=== PATIENT | male | born 1955 | race Caucasian/White ===

== ENCOUNTER 2019-11-07 10:09 | Inpatient (IN) ==
[~2019-11-07 10:09] MED LIST: DOXYCYCLINE 100 MG in DEXTROSE 5% IN WATER 100 ML IV ONE
[2019-11-07 10:44] LABS: POC Blood Urea Nitrogen 20 mg/dl (8-23); POC CO2 31 mmol/L (22-30); POC Calcium, Ionized 1.15 mmol/L (1.16-1.32); POC Chloride 103 mmol/L (96-108); POC Creatinine 0.4 mg/dl (0.7-1.2); POC Glucose, Random 91 mg/dL (70-105); POC Sodium 141 mmol/L (133-145)
[2019-11-07] MEDS ORDERED: SCOPOLAMINE 1 PATCH PATCH TOPICAL ONE (11:14)
[2019-11-07] MEDS ORDERED: ONDANSETRON 4 MG/2 ML VIAL IV ONE (14:55)
[2019-11-07] MEDS ORDERED: DEXAMETHASONE 10 MG/ML VIAL IV ONE (14:55)
[2019-11-07] MEDS ORDERED: LIDOCAINE HCL/PF 100 MG/5 ML SYRINGE IV ONE (14:55)
[2019-11-07] MEDS ORDERED: KETAMINE 100 MG/ML ML IV ONE (14:55)
[2019-11-07] MEDS ORDERED: ePHEDrine 50 MG/ML AMPUL IV ONE (14:55)
[2019-11-07] MEDS ORDERED: PROPOFOL 200 MG/20 ML VIAL IV ONE (14:55)
[2019-11-07] MEDS ORDERED: diphenhydrAMINE 50 MG/ML VIAL IV PRN ×2 (15:19→16:38)
[2019-11-07] MEDS ORDERED: METHOCARBAMOL 1,000 MG/10 ML VIAL IV PRN ×2 (15:19→16:38)
[2019-11-07] MEDS ORDERED: ePHEDrine 50 MG/ML AMPUL IV PRN ×2 (15:19→16:38)
[2019-11-07] MEDS ORDERED: ATROPINE SULFATE 0.4 MG/ML VIAL IV PRN ×2 (15:19→16:38)
[2019-11-07] MEDS ORDERED: IPRATROPIUM/ALBUTEROL 3 ML AMPUL.NEB NEB PRN ×2 (15:19→16:38)
[2019-11-07] MEDS ORDERED: fentaNYL 100 MCG/2 ML VIAL IV PRN ×2 (15:19→16:38)
[2019-11-07] MEDS ORDERED: NALOXONE HCL 0.4 MG/ML VIAL IV PRN ×2 (15:19→16:38)
[2019-11-07] MEDS ORDERED: ONDANSETRON 4 MG/2 ML VIAL IV PRN ×4 (15:19→16:38)
[2019-11-07] MEDS ORDERED: LACTATED RINGERS 1,000 ML IV SCH ×2 (15:30→16:38)
[2019-11-07] MEDS ORDERED: BACITRACIN TOPICAL OINT 15 GM TUBE TOPICAL ONE (15:38)
--- NOTE | 2019-11-07 16:06 | Brief Operative Note ---
Date of procedure: 11/07/19 Pre-op diagnosis: Sacral wound, Stage III Post-op diagnosis: other (Stage IV ulcer) Procedure: Debride wound and advancement flap closure. Total length 6 cm Anesthesia: GETA Findings: Grade IV ulcer down to sacral bone Complications: none Surgeon: Paxton Mejia Specimens Removed/Pathology: other (Wound culture sent post-irrigation) Condition: stable Disposition: PACU
[2019-11-07] MEDS ORDERED: DOXYCYCLINE 100 MG in DEXTROSE 5% IN WATER 100 ML IV SCH (16:15)
[2019-11-07] MEDS ORDERED: NYSTATIN MC PRN (16:26)
[2019-11-07] MEDS ORDERED: MAGNESIUM HYDROXIDE 30 ML ORAL.SUSP PO PRN ×2 (16:26→16:38)
[2019-11-07] MEDS ORDERED: SENNOSIDES 1 TABLET PO PRN ×2 (16:26→16:38)
[2019-11-07] MEDS ORDERED: ONDANSETRON 4 MG ODT TABLET PO PRN (16:26)
[2019-11-07] MEDS ORDERED: POLYETHYLENE GLYCOL 3350 17 GM PACKET PO PRN ×2 (16:26→16:38)
[2019-11-07] MEDS ORDERED: BISACODYL 10 MG SUPP.RECT PR PRN ×5 (16:26→16:38)
[2019-11-07] MEDS ORDERED: OXYCODONE HCL 10 MG PO PRN (16:26)
[2019-11-07] MEDS ORDERED: BISACODYL 10 MG PO PRN (16:26)
[2019-11-07] MEDS ORDERED: PSYLLIUM HUSK 0.52 GM PO PRN (16:26)
[2019-11-07] MEDS ORDERED: BACLOFEN 10 MG TABLET PO PRN (16:26)
[2019-11-07] MEDS ORDERED: MELATONIN 3 MG TABLET PO PRN (16:28)
[2019-11-07] MEDS ORDERED: ACETAMINOPHEN 650 MG/65 ML BOTTLE IV PRN (16:28)
[2019-11-07] MEDS ORDERED: ACETAMINOPHEN 325 MG TABLET PO PRN ×2 (16:28→16:38)
[2019-11-07] MEDS ORDERED: ONDANSETRON 4 MG ODT TABLET SL PRN ×2 (16:28→16:38)
[2019-11-07] MEDS ORDERED: POTASSIUM CHLORIDE 20 MEQ PACKET PO PRN ×2 (16:28→16:38)
[2019-11-07] MEDS ORDERED: MAGNESIUM SULFATE 2 GM/50 ML BAG IV PRN ×2 (16:28→16:38)
[2019-11-07] MEDS ORDERED: VANCOMYCIN PER PHARMACY IV SCH ×2 (16:30→16:38)
[2019-11-07] MEDS ORDERED: 0.9 % SODIUM CHLORIDE 1,000 ML IV SCH (16:30)
--- NOTE | 2019-11-07 16:34 | Internal Medicine Consult Note ---
Medical - CN: [facility] - Data of Consult Consult date: 11/07/19 Requesting physician: Paxton Mejia Primary Care Provider: Stacia Helms - Consult Narrative Reason for consult: medical consult History of present illness: Mr. Bolton is a 64 year old M with a history of T6 quadriplegia who developed decubitus ulceration a few months ago with gradually worsening to stage IV. Patient has been managed by wound care and was referred for surgical intervention. He underwent wound debridement with advanced flap closure by Dr. Gerardo Mejia today. Postoperatively hospitalist service was consulted. During my evaluation patient is immediately postoperative. He is sedated under the effect of anesthesia. Blood pressures around 80s. He however responds to commands opens eyes. He complains of postoperative pain. Patient was able to endorse history as above. He denies recent fever chills. Review of systems A 10 point review system was performed and is negative except for discussed above CC: Paxton Mejia Medical - CN: H Medical history: Decreased breath sounds (Chronic) Pneumoperitoneum (Chronic) Decubitus ulcers (Chronic) Gangrene of toe (Chronic) MRSA (methicillin resistant staph aureus) culture positive (Chronic) Elbow wound (Chronic) "Leaking" Lt Elbow Moderate malnutrition (Chronic) Neurogenic bladder (Chronic) Autonomic dysreflexia (Chronic) B-cell lymphoma (Chronic) Chronic narcotic use (Chronic) Quadriplegia (Chronic) Constipation (Chronic) Septic olecranon bursitis of left elbow (Chronic) Osteomyelitis of left elbow (Chronic) Surgical History History of amputation of toe (Chronic) History of surgery (Chronic ~2016) Surgical debridement and flap surgery of buttocks Port-A-Cath in place (Chronic) Family History Other No pertinent past surgical history Social History smoking status: Former smoker alcohol intake frequency: former alcohol drinker substance use type: does not use Family history: reviewed and not pertinent Medical - CN: Meds Home Medications Medication Instructions Recorded Confirmed Type oxycodone 10 mg tablet 10 mg PO Q4H PRN tab 11/03/18 11/07/19 History Apixaban [Eliquis] 2.5 mg PO BID 11/02/19 11/07/19 History Argin/Glut/Cahmb/Collag/Mv-Min 1 each PO DAILY 11/02/19 11/07/19 History [Hernan Packet] Ascorbic Acid [Vitamin C with Kaylee 500 mg PO BID 11/02/19 11/07/19 History Hips] Baclofen [Lioresal] 15 mg PO QIDP PRN 11/02/19 11/07/19 History Bisacodyl [Dulcolax] 10 mg [place] DAILYP PRN 11/02/19 11/07/19 History Bisacodyl [Laxative] 10 mg PO DAILYP PRN 11/02/19 11/07/19 History Calcium Carbonate [Calcium] 1,000 mg PO Q4HP PRN 11/02/19 11/07/19 History Cholecalciferol (Vitamin D3) 4,000 unit PO DAILY 11/02/19 11/07/19 History [Vitamin D3] Lactobacillus [Culturelle] 1 cap PO BID 11/02/19 11/07/19 History Magnesium Hydroxide [Milk of 30 ml PO PRN PRN 11/02/19 11/07/19 History Magnesia] Mirtazapine [Remeron] 7.5 mg PO HS 11/02/19 11/07/19 History Multivitamin [Daily Multiple 1 each PO DAILY 11/02/19 11/07/19 History Vitamin] Na Phos,M-B/Na Phos,Di-Ba [Fleets 1 dose [place] DAILYP PRN 11/02/19 11/07/19 History Adult] Nystatin 1 each MC QIDP PRN 11/02/19 11/07/19 History Ondansetron [Zofran ODT] 4 mg PO Q6H PRN 11/02/19 11/07/19 History Polyethylene Glycol 3350 [Miralax] 17 gm PO DAILYP PRN 11/02/19 11/07/19 History Psyllium Husk [Psyllium Fiber] 0.52 gm PO HSP PRN 11/02/19 11/07/19 History Sennosides [Senna] 8.6 mg PO BIDP PRN 11/02/19 11/07/19 History Zinc Sulfate 220 mg PO DAILY 11/02/19 11/07/19 History Allergies Allergy/AdvReac Type Severity Reaction Status Date / Time Latex, Natural Rubber Allergy Intermediate Rash Verified 11/07/19 10:32 Penicillins Allergy Intermediate skin rash, Verified 11/07/19 10:32 peeling morphine Allergy Mild Intermediate Verified 11/07/19 10:32 Hypertension Sulfa (Sulfonamide Allergy Mild Mild, skin Verified 11/07/19 10:32 Antibiotics) wound peel Medical - CN: Exam - Constitutional Vitals: Temp Pulse Resp BP Pulse Ox 97.1 F 80 15 95/60 94 11/07/19 10:32 11/07/19 16:30 11/07/19 16:30 11/07/19 16:30 11/07/19 16:30 General appearance: no acute distress Exam: Resting comfortably Head normocephalic Oral cavity dry No ear nose discharge No lymphadenopathy S1-S2 occasionally irregular rhythm no murmur Diminished breath sounds bases Abdomen soft nontender Left lower extremity multiple ulceration involving foot covered in dressing Deformed ankle joint right lower extremity Skin no suspicious lesion No lymphedema cyanosis or clubbing Psych alert cooperative Neuro quadriplegic Medical - CN: Result - Labs CBC & Chem 7: 11/08/19 07:45 11/08/19 07:45 Medical - CN: A/P (1) Wound of sacral region Status: Acute Assessment and plan: * Sacral wound stage III stage IV status post debridement and advancement flap closure by surgery. * Sacral wound infection/cellulitis continue Rocephin/vancomycin until cultures obtained and de-escalate as indicated. * History of quadriplegia-continue PT OT/offloading, continue baclofen/oxycodone for pain management * Anticoagulation on apixaban( Indication unclear Possibly Afib, await prior he alth records) * Full code * Prophylaxis on anticoagulation Plan * Postoperative care as per surgery * Wound care consult * Antibiotic de-escalation based on culture results * Prior medical condition management as above * High complexity consult * Screening labs including CBC UA/inpatient panel
[2019-11-07] MEDS ORDERED: DOXYCYCLINE 100 MG in DEXTROSE 5% IN WATER 100 ML IV ONE (16:38)
[2019-11-07] MEDS ORDERED: PSYLLIUM HUSK 6 GM PACKET PO PRN (16:38)
[2019-11-07] MEDS ORDERED: NYSTATIN POWDER BOTTLE 15GM TOPICAL PRN (16:38)
[2019-11-07] MEDS: 0.9 % SODIUM CHLORIDE 1,000 ML IV SCH (17:00)
[2019-11-07] MEDS ORDERED: cefTRIAXone 2 GM in DEXTROSE 5% IN WATER 50 ML IV SCH (17:00)
[2019-11-07] MEDS: cefTRIAXone 2 GM in DEXTROSE 5% IN WATER 50 ML IV SCH (17:45)
[2019-11-07 18:28] LABS: Hematocrit 37.1 % (40.1-51.0); Mean Cell Volume 85.1 fL (80.0-100.0); Mean Corpuscular HGB Conc 29.6 g/dL (31.0-36.0); Mean Platelet Volume 9.2 fL (7.4-10.4); Platelet Count 422 K/mcL (140-440); RBC 4.36 M/mcL (4.63-6.08); Red Cell Distribution Width 16.3 % (11.5-14.5); WBC 12.3 K/mcL (4.50-11.00)
[2019-11-07 18:50] LABS: ALT/SGPT 7 U/l (0-40); AST/SGOT 11 U/l (0-37); Albumin 3.1 gm/dL (3.2-5.2); Alkaline Phosphatase 160 U/L (39-117); Bilirubin,Direct < 0.2 mg/dL (0.0-0.3); Bilirubin,Total 0.2 mg/dL (0.0-1.0); Blood Urea Nitrogen 18 mg/dl (8-23); Calcium 8.9 mg/dl (8.6-10.4); Carbon Dioxide 25 mmol/L (22-30); Chloride 101 mmol/L (96-108); Globulin 3.1 gm/dL (2.2-3.7); Glomerular Filtration Rate 125; Glucose 117 mg/dL (70-105); Lactate Dehydrogenase 180 U/L (94-250); Phosphorous 4.6 mg/dL (2.7-4.5); Triglycerides 157 mg/dl (<150); Uric Acid 6.4 mg/dL (2.5-8.0)
[2019-11-07] MEDS: oxyCODONE HCL 5 MG TABLET PO PRN (19:31)
[2019-11-07] MEDS: ACETAMINOPHEN 650 MG/65 ML BOTTLE IV PRN (19:32)
[2019-11-07] MEDS: BACLOFEN 10 MG TABLET PO PRN (19:32)
[2019-11-07 19:43] LABS: Anisocytosis 1+ (NONE SEEN); Band Neutrophils % 7 % (0-10); Eosinophils % (Manual) 2 % (0-7); Hypochromasia 2+ (NONE SEEN); Lymphocytes % 10 % (15-49); Monocytes % (Manual) 1 % (1-12); Platelet Estimate NORMAL (NORMAL); Polychromasia 1+ (NONE SEEN); RBC Morphology ABNORM (NORMAL); Segmented Neutrophils % 80 % (38-78)
[2019-11-07] MEDS: MIRTAZAPINE 15 MG TABLET PO SCH (20:06)
[2019-11-07] MEDS: MELATONIN 3 MG TABLET PO PRN (20:06)
[2019-11-07] MEDS: CYANOCOBALAMIN (VITAMIN B-12) 500 MCG TABLET PO SCH (20:06)
[2019-11-07] MEDS: APIXABAN 2.5 MG TABLET PO SCH (20:07)
[2019-11-07] MEDS: ASCORBIC ACID 500 MG TABLET PO SCH (20:07)
[2019-11-07] MEDS: DOCUSATE SODIUM 100 MG CAPSULE PO SCH (20:07)
[2019-11-07] MEDS: VANCOMYCIN 750 MG in 0.9 % SODIUM CHLORIDE 250 ML IV SCH (20:07)
[2019-11-07] MEDS: SENNOSIDES/DOCUSATE SODIUM 1 TAB TABLET PO SCH (20:07)
[2019-11-07] MEDS: BACITRACIN TOPICAL OINT 15 GM TUBE TOPICAL SCH (20:07)
[2019-11-07] MEDS ORDERED: SENNOSIDES/DOCUSATE SODIUM 1 TAB TABLET PO SCH (21:00)
[2019-11-07] MEDS ORDERED: APIXABAN 2.5 MG TABLET PO SCH (21:00)
[2019-11-07] MEDS ORDERED: CYANOCOBALAMIN (VITAMIN B-12) 500 MCG TABLET PO SCH (21:00)
[2019-11-07] MEDS ORDERED: ASCORBIC ACID 500 MG TABLET PO SCH (21:00)
[2019-11-07] MEDS ORDERED: MIRTAZAPINE 15 MG TABLET PO SCH (21:00)
[2019-11-07] MEDS ORDERED: DOCUSATE SODIUM 100 MG CAPSULE PO SCH (21:00)
[2019-11-07] MEDS: HYDROmorphone 2 MG/ML VIAL IV PRN (21:10)
[2019-11-07] MEDS ORDERED: 0.9 % SODIUM CHLORIDE 10 ML SYRINGE IV SCH (22:00)
[2019-11-08] MEDS: oxyCODONE HCL 5 MG TABLET PO PRN ×6 (00:21→23:24)
[2019-11-08] MEDS: 0.9 % SODIUM CHLORIDE 10 ML SYRINGE IV SCH ×4 (00:23→23:15)
[2019-11-08] MEDS: HYDROmorphone 2 MG/ML VIAL IV PRN ×5 (01:08→19:20)
[2019-11-08] MEDS: cefTRIAXone 2 GM in DEXTROSE 5% IN WATER 50 ML IV SCH (07:41)
[2019-11-08] MEDS: BACLOFEN 10 MG TABLET PO PRN (07:43)
--- NOTE | 2019-11-08 07:52 | Operative Note ---
DATE OF OPERATION: 11/07/2019 PREOPERATIVE DIAGNOSIS: Grade III sacral pressure sore, status post partial wound dehiscence. POSTOPERATIVE DIAGNOSIS: Stage IV sacral pressure sore with exposed sacral bone. PROCEDURE PERFORMED: 1. Debridement of wound with excision of skin and subcutaneous fat, fascia and bone. 2. Readvancement flap closure of right gluteus juan j fasciocutaneous flap. SURGEON: Paxton Mejia MD MIMEOGRAPHER: JERMAINE Magallanes student. ANESTHESIA: General. ESTIMATED BLOOD LOSS: Approximately 100 mL COMPLICATIONS: None. DRAINS: A single 7 mm STACIA drain was placed. SPECIMENS: A post-irrigation culture was sent to the lab of the sacral bone and deep space wound. INDICATIONS: The patient is a 64-year-old male with a C5-C6 incomplete quadriplegia, presenting now just about a month after closure of a complex wound with a transposition flap and gluteus flap closure. The patient was having a lot of stooling after surgery and keeping the area clean, required frequent cleaning and this, unfortunately resulted in dehiscence of one side of the wound. We tried a wound V.A.C. to help keep the stool out of the wound and keep the area clean. The wound healed minimally in the last 2 to 3 weeks and one side of the flap has healed fairly nicely. We will plan for readvancement of the flap and reclosure. DESCRIPTION OF PROCEDURE: The patient was identified in holding area where the planned procedure was discussed with him. He wished to proceed and consented freely. 100 mg of doxycycline were given IV. He was brought into the operating room. General anesthesia was induced and he was placed in the right lateral decubitus position with all his pressure points adequately protected on the beanbag. The patient's lower back, buttock, and perineal area were prepped with Betadine and then draped out sterilely. The wound was painted with blue dye and the wound edges were completely refreshened. The wounds were extensively curetted out and irrigated with about 3 liters of lactated ringer solution. Flaps were then elevated, primarily towards the patient's right side to allow for readvancement of the gluteus muscle fasciocutaneous flap. With the advancement of the flap, it came towards the midline with relatively minimal tension. The incision was extended superiorly and inferiorly to allow for closure without any remnants or dog ears. The posterior sacrum was ragged and irregular and this was rasped down and thoroughly irrigated out and cleaned out. Final check for hemostasis was made and the wounds were then closed over a 7 mm STACIA drain which exited via a separate stab incision on the right side. The fasciocutaneous flap was then readvanced and closed using multiple interrupted 0 Monocryl sutures to approximate the flap. The skin was then closed with horizontal mattress simple sutures of 3-0 nylon with multiple surgical clips. I was very pleased with a relatively watertight closure in the event that the patient continues to have problems with fecal drainage. The wounds were then washed free of debris and then dressed with bacitracin. The patient was then rolled directly onto his hospital bed. He was extubated and awakened in the operating room and taken over to the recovery room in stable condition. There were no complications. Sponge and needle counts were correct and the patient tolerated the procedure well. BENJAMIN:kh Job ID: [id number] Doc ID: [id number] Paxton Mejia MD
[2019-11-08] MEDS ORDERED: MULTIVITAMIN PO SCH (09:00)
[2019-11-08] MEDS ORDERED: MULTIVIT,THER IRON,CA,FA & MIN 1 TABLET PO SCH ×2 (09:00)
[2019-11-08] MEDS ORDERED: ZINC SULFATE 220 MG PO SCH (09:00)
[2019-11-08] MEDS ORDERED: FOLIC ACID 1 MG TABLET PO SCH (09:00)
[2019-11-08] MEDS ORDERED: THIAMINE 100 MG TABLET PO SCH (09:00)
[2019-11-08] MEDS: BACITRACIN TOPICAL OINT 15 GM TUBE TOPICAL SCH ×3 (09:42→23:14)
[2019-11-08] MEDS: CYANOCOBALAMIN (VITAMIN B-12) 500 MCG TABLET PO SCH ×2 (09:43→23:13)
[2019-11-08] MEDS: VANCOMYCIN 750 MG in 0.9 % SODIUM CHLORIDE 250 ML IV SCH (09:43)
[2019-11-08] MEDS: FOLIC ACID 1 MG TABLET PO SCH (09:44)
[2019-11-08] MEDS: THIAMINE 100 MG TABLET PO SCH (09:44)
[2019-11-08] MEDS: MULTIVIT,THER IRON,CA,FA & MIN 1 TABLET PO SCH (09:45)
[2019-11-08] MEDS: ZINC SULFATE 50 MG CAPSULE PO SCH (09:45)
[2019-11-08] MEDS: ASCORBIC ACID 500 MG TABLET PO SCH ×2 (09:45→23:12)
[2019-11-08] MEDS: APIXABAN 2.5 MG TABLET PO SCH ×2 (09:45→23:12)
[2019-11-08] MEDS: DOCUSATE SODIUM 100 MG CAPSULE PO SCH ×2 (09:45→23:14)
[2019-11-08 09:54] LABS: Hematocrit 32.8 % (40.1-51.0); Hemoglobin 9.7 g/dL (13.7-17.5); Mean Cell Volume 84.8 fL (80.0-100.0); Mean Corpuscular HGB Conc 29.6 g/dL (31.0-36.0); Mean Platelet Volume 9.6 fL (7.4-10.4); Platelet Count 401 K/mcL (140-440); RBC 3.87 M/mcL (4.63-6.08); Red Cell Distribution Width 16.2 % (11.5-14.5); WBC 7.4 K/mcL (4.50-11.00)
[2019-11-08 10:43] LABS: Anisocytosis 1+ (NONE SEEN); Band Neutrophils % 2 % (0-10); Hypochromasia 1+ (NONE SEEN); Lymphocytes % 16 % (15-49); Monocytes % (Manual) 5 % (1-12); Platelet Estimate INCREASED (NORMAL); RBC Morphology ABNORM (NORMAL); Segmented Neutrophils % 77 % (38-78)
[2019-11-08 10:48] LABS: ALT/SGPT 7 U/l (0-40); AST/SGOT 10 U/l (0-37); Albumin/Globulin Ratio 1.1 (1.0-2.3); Alkaline Phosphatase 143 U/L (39-117); Bilirubin,Direct < 0.2 mg/dL (0.0-0.3); Bilirubin,Total < 0.2 mg/dL (0.0-1.0); Blood Urea Nitrogen 18 mg/dl (8-23); Calcium 8.6 mg/dl (8.6-10.4); Carbon Dioxide 26 mmol/L (22-30); Chloride 102 mmol/L (96-108); Globulin 2.8 gm/dL (2.2-3.7); Glomerular Filtration Rate 114; Glucose 224 mg/dL (70-105); Lactate Dehydrogenase 167 U/L (94-250); Phosphorous 4.2 mg/dL (2.7-4.5); Triglycerides 99 mg/dl (<150); Uric Acid 6.5 mg/dL (2.5-8.0)
--- NOTE | 2019-11-08 12:26 | Internal Med Progress Note ---
Medical - PN: Subj Patient information: Note initiated : 11/08/19 at 12:25 pm Service Date, if different from initiated Date: [] Patient: Darien Bolton 64 y/o M admitted on 11/07/19 for Debridement, Readvance Sacral Wound. Chief Complaint: [] Interval history: Mr. Bolton is a 64 year old M with a history of quadriplegia who developed decubitus ulceration a few months ago with gradually worsening to stage IV. Patient has been managed by wound care and was referred for surgical intervention. He underwent wound debridement with advanced flap closure by Dr. Gerardo Mejia today. Postoperatively hospitalist service was consulted. During my evaluation patient is immediately postoperative. He is sedated under the effect of anesthesia. Blood pressures around 80s. He however responds to commands opens eyes. He complains of postoperative pain. Patient was able to endorse history as above. He denies recent fever chills. 11/08-patient doing well. Tolerating diet. No overnight fever chills nausea vomiting. Ongoing wound care. Discharge planning per surgery. Continue nutrition supplements to promote wound healing. - Constitutional Vitals: Vital Signs Temp Pulse Resp BP Pulse Ox 97.4 F 62 16 93/65 96 11/08/19 08:00 11/08/19 08:00 11/08/19 08:00 11/08/19 08:00 11/08/19 08:00 Period Temp Pulse Resp BP Sys/Isidro Pulse Ox Last 24 Hr 97.0 F-97.5 F 62-92 10-22 74-116/52-81 89-97 Intake and Output 11/07/19 11/08/19 11/08/19 21:59 05:59 13:59 Intake Total 1053 600 480 Output Total 20 720 5 Balance 1033 -120 475 Weight 115 lb Intake & Output: Intake & Output 11/07/19 11/08/19 11/08/19 21:59 05:59 13:59 Intake Total 1053 600 480 Output Total 20 720 5 Balance 1033 -120 475 Weight 115 lb Intake: IV 153 250 Sodium Chloride 0.9% 1,000 ml @ 38 50 mls/hr IV .Q20H [facility] Rx#: [id number] Vancomycin 750 mg In Sodium 250 Chloride 0.9% 250 ml @ 250 mls/ hr IV Q12H [facility] Rx#:[id number] Rocephin 2 gm In Dextrose 5% in 50 Water 50 ml @ 100 mls/hr IV Q24H [facility] Rx#:[id number] Oral 350 480 IV - Manual Only 900 Output: Drainage 5 Right Hip 5 Drainage 20 Right Hip 20 Urine Catheter Amount 700 Estimated Blood Loss 20 Other: Percent of Meal Consumed 25% Urine Appearance Clear Cloudy Sediment De Souza Cloudy Sediment Urine Color Dark Yellow Bright Yellow De Souza Straw Urine Odor Strong Stool Size Smear Stool Color Brown # Bowel Movements 1 General appearance: no acute distress Exam: Alert oriented Nonlabored breathing No anxiety Medical - PN: Obj Da - Labs CBC & Chem 7: 11/08/19 07:45 11/08/19 07:45 Labs: Abnormal Lab Results 11/08/19 11/08/19 11/07/19 07:45 07:45 17:10 WBC RBC 3.87 L Hgb 9.7 L Hct 32.8 L POC Hct MCH 25.1 L MCHC 29.6 L RDW 16.2 H Seg Neutrophils % Lymphocytes % Platelet Estimate Increased A RBC Morphology Abnorm A Polychromasia Hypochromasia 1+ A Anisocytosis 1+ A POC Total CO2 Creatinine 0.5 L 0.4 L POC Creatinine Glucose 224 H 117 H POC WB Ioniz Calcium Phosphorus 4.6 H Alkaline Phosphatase 143 H 160 H Total Protein 5.8 L Albumin 3.0 L 3.1 L Triglycerides 157 H 11/07/19 11/07/19 17:10 10:33 WBC 12.3 H RBC 4.36 L Hgb 11.0 L Hct 37.1 L POC Hct 36.0 L MCH 25.2 L MCHC 29.6 L RDW 16.3 H Seg Neutrophils % 80 H Lymphocytes % 10 L Platelet Estimate RBC Morphology Abnorm A Polychromasia 1+ A Hypochromasia 2+ A Anisocytosis 1+ A POC Total CO2 31 H Creatinine POC Creatinine 0.4 L Glucose POC WB Ioniz Calcium 1.15 L Phosphorus Alkaline Phosphatase Total Protein Albumin Triglycerides Meds: Medications Acetaminophen (Tylenol) 650 mg PO Q4-6HP PRN; Protocol PRN Reason: Per Pain Protocol/Fever > 101 Apixaban (Eliquis) 2.5 mg PO BID [facility] Last Admin: 11/08/19 09:45 Dose: 2.5 mg Documented by: Ascorbic Acid (Vitamin C) 500 mg PO BID [facility] Last Admin: 11/08/19 09:45 Dose: 500 mg Documented by: Bacitracin (Bacitracin Topical Oint) 1 dose TOPICAL BID [facility] Last Admin: 11/08/19 09:45 Dose: 1 dose Documented by: Baclofen (Lioresal) 10 mg PO QIDP PRN PRN Reason: Muscle Spasm Last Admin: 11/08/19 07:43 Dose: 10 mg Documented by: Bisacodyl (Dulcolax) 10 mg MD DAILYP PRN PRN Reason: Constipation Cyanocobalamin (Vitamin B-12) 1,000 mcg PO BID [facility] Stop: 11/12/19 09:01 Last Admin: 11/08/19 09:43 Dose: 1,000 mcg Documented by: Docusate Sodium (Colace) 100 mg PO BID [facility] Last Admin: 11/08/19 09:45 Dose: 100 mg Documented by: Folic Acid (Folic Acid) 1 mg PO DAILY [facility] Last Admin: 11/08/19 09:44 Dose: 1 mg Documented by: Hydromorphone HCl (Dilaudid) 0.5 mg IV Q1HP PRN; Protocol PRN Reason: Per Pain Protocol Last Admin: 11/08/19 07:42 Dose: 0.5 mg Documented by: Vancomycin HCl 750 mg/ Sodium (Chloride) 250 mls @ 250 mls/hr IV Q12H [facility] Last Admin: 11/08/19 09:43 Dose: 250 mls/hr Documented by: Ceftriaxone Sodium 2 gm/ (Dextrose) 50 mls @ 100 mls/hr IV Q24H [facility]; Protocol Last Admin: 11/08/19 07:41 Dose: 100 mls/hr Documented by: Magnesium Sulfate (Magnesium Sulfate) 2 gm in 50 mls @ 50 mls/hr IV UD PRN PRN Reason: MG = or < 1.7 Sodium Chloride (Sodium Chloride 0.9%) 1,000 mls @ 50 mls/hr IV .Q20H [facility] Stop: 11/10/19 04:29 Last Infusion: 11/07/19 17:45 Dose: 0 mls/hr Documented by: Acetaminophen (Ofirmev) 650 mg in 65 mls @ 130 mls/hr IV Q6HP PRN; Protocol PRN Reason: Per Pain Protocol/Fever > 101 Last Infusion: 11/07/19 20:38 Dose: Infused Documented by: Iron Carb/Multivit/[place]/Folic Acid (Multivitamin W/Minerals) 1 tab PO DAILY [facility] Last Admin: 11/08/19 09:45 Dose: 1 tab Documented by: Magnesium Hydroxide (Milk Of Magnesia) 30 ml PO PRN PRN PRN Reason: Constipation Melatonin (Melatonin 3mg Tablet) 3 mg PO HSP PRN PRN Reason: Insomnia Last Admin: 11/07/19 20:06 Dose: 3 mg Documented by: Mirtazapine (Remeron) 7.5 mg PO [facility] Last Admin: 11/07/19 20:06 Dose: 7.5 mg Documented by: Nystatin (Nystatin) 1 dose TOPICAL QIDP PRN PRN Reason: Rash Ondansetron HCl (Zofran Odt) 4 mg SL Q4-6HP PRN; Protocol PRN Reason: Nausea And Vomiting Last Admin: 11/07/19 20:07 Dose: 4 mg Documented by: Ondansetron HCl (Zofran) 4 mg IV Q4-6HP PRN; Protocol PRN Reason: Nausea And Vomiting Oxycodone HCl (Roxicodone) 10 mg PO Q4HP PRN PRN Reason: Pain Last Admin: 11/08/19 09:44 Dose: 10 mg Documented by: Polyethylene Glycol (Miralax) 17 gm PO DAILYP PRN PRN Reason: Constipation Potassium Chloride (Klor-Con) 40 meq PO DAILYP PRN PRN Reason: K+ < 3.5 Psyllium Hydrophilic Mucilloid (Metamucil) 6 gm PO HSP PRN PRN Reason: Constipation Senna/Docusate Sodium (Senna Plus Tablet) 1 tab PO [facility] Last Admin: 11/07/19 20:07 Dose: 1 tab Documented by: Sitagliptin Phosphate (Januvia) 100 mg PO DAILY [facility] Sodium Chloride (Saline Flush) 10 ml IV Q8 [facility] Last Admin: 11/08/19 05:17 Dose: Not Given Documented by: Thiamine HCl (Vitamin B1) 100 mg PO DAILY [facility] Last Admin: 11/08/19 09:44 Dose: 100 mg Documented by: Vancomycin HCl (Vancomycin Per Pharmacy) 1 order IV UD [facility]; Protocol Zinc Sulfate (Zinc) 50 mg PO DAILY [facility] Last Admin: 11/08/19 09:45 Dose: 50 mg Documented by: Medical - PN: A/P - Time Spent With Patient Total time spent is greater than 50% in coordination of care (as documented) at patient's floor/unit and/or counseling patient: 25 - 35 minutes (1) Wound of sacral region Status: Acute Assessment and plan: * Sacral wound stage III stage IV status post debridement and advancement flap closure by surgery. * Sacral wound infection/cellulitis continue Rocephin/vancomycin until cultures obtained and de-escalate as indicated. * History of T6 quadriplegia-continue PT OT/offloading, continue baclofen/oxycodone for pain management * Anticoagulation on apixaban indication ischemic cardiomyopathy, restarted today * Elevated blood sugars, start sitagliptin. Check A1c * Full code * Prophylaxis on anticoagulation Plan * Continue postoperative care as per surgery * Wound care per wound physician * Antibiotic de-escalation based on culture results * Prior medical condition management as above Current Visit: Yes
[2019-11-08 13:38] LABS: Hemoglobin A1C 5.3 % HGB (4.0-6.0)
[2019-11-08] MEDS: 0.9 % SODIUM CHLORIDE 1,000 ML IV SCH ×2 (15:41→19:19)
[2019-11-08] MEDS: sitaGLIPtin 100 MG TABLET PO SCH (15:55)
--- NOTE | 2019-11-08 17:29 | General Surgery Consult Note ---
History of Present Illness Patient information: Note initiated : 11/08/19 at 5:26 pm Service Date, if different from initiated Date: [] Patient: Darien Bolton 64 y/o M admitted on 11/07/19 for Debridement, Readvance Sacral Wound. Chief Complaint: [] Consult date: 11/08/19 Requesting physician: Brian Rodriguez (Wound Management) History of present illness: I saw this patient in room 133 on [facility]. Patient is s/p Debridement of sacral wound ulcer with advancement flap repair by Dr. Mejia, Plastic Surgeon. I know this patient from before. He has traumatic quadriplegia and is a resident at [facility] [place] in [facility]. He has multiple other chronic wounds managed appropriately at the facility. His current hospitalization at [facility] is following Debridement of Sacral Stage 4 Pressure Ulcer with primary advancement flap closure by Dr. Paxton Mejia . He has requested me to see and follow this patient from wound care point of view. I saw Wlater along with Nanette PASTRANA, Inpatient wound care nurse and physical therapist in room 133 on [facility] Floor. Medications and Allergies Home Medications Medication Instructions Recorded Confirmed Type oxycodone 10 mg tablet 10 mg PO Q4H PRN tab 11/03/18 11/07/19 History Apixaban [Eliquis] 2.5 mg PO BID 11/02/19 11/07/19 History Argin/Glut/Cahmb/Collag/Mv-Min 1 each PO DAILY 11/02/19 11/07/19 History [Hernan Packet] Ascorbic Acid [Vitamin C with Kaylee 500 mg PO BID 11/02/19 11/07/19 History Hips] Baclofen [Lioresal] 15 mg PO QIDP PRN 11/02/19 11/07/19 History Bisacodyl [Dulcolax] 10 mg DC DAILYP PRN 11/02/19 11/07/19 History Bisacodyl [Laxative] 10 mg PO DAILYP PRN 11/02/19 11/07/19 History Calcium Carbonate [Calcium] 1,000 mg PO Q4HP PRN 11/02/19 11/07/19 History Cholecalciferol (Vitamin D3) 4,000 unit PO DAILY 11/02/19 11/07/19 History [Vitamin D3] Lactobacillus [Culturelle] 1 cap PO BID 11/02/19 11/07/19 History Magnesium Hydroxide [Milk of 30 ml PO PRN PRN 11/02/19 11/07/19 History Magnesia] Mirtazapine [Remeron] 7.5 mg PO HS 11/02/19 11/07/19 History Multivitamin [Daily Multiple 1 each PO DAILY 11/02/19 11/07/19 History Vitamin] Na Phos,M-B/Na Phos,Di-Ba [Fleets 1 dose DC DAILYP PRN 11/02/19 11/07/19 History Adult] Nystatin 1 each MC QIDP PRN 11/02/19 11/07/19 History Ondansetron [Zofran ODT] 4 mg PO Q6H PRN 11/02/19 11/07/19 History Polyethylene Glycol 3350 [Miralax] 17 gm PO DAILYP PRN 11/02/19 11/07/19 History Psyllium Husk [Psyllium Fiber] 0.52 gm PO HSP PRN 11/02/19 11/07/19 History Sennosides [Senna] 8.6 mg PO BIDP PRN 11/02/19 11/07/19 History Zinc Sulfate 220 mg PO DAILY 11/02/19 11/07/19 History Allergies Allergy/AdvReac Type Severity Reaction Status Date / Time Latex, Natural Rubber Allergy Intermediate Rash Verified 11/07/19 10:32 Penicillins Allergy Intermediate skin rash, Verified 11/07/19 10:32 peeling morphine Allergy Mild Intermediate Verified 11/07/19 10:32 Hypertension Sulfa (Sulfonamide Allergy Mild Mild, skin Verified 11/07/19 10:32 Antibiotics) wound peel Exam Temp Pulse Resp BP Pulse Ox 97.9 F 68 18 108/70 98 11/08/19 12:00 11/08/19 12:00 11/08/19 12:00 11/08/19 12:00 11/08/19 14:17 - General physical appearance no distress, no pain, cachectic - Eyes PERRL, normal ocular movement - ENT normal nares, normal mucosa, no congestion - Head Head exam IM: Present: atraumatic, normocephalic - Neck no masses, trachea midline, no venous distension - Cardiovascular Cardiovascular exam IM: Present: normal rate and rhythm - Respiratory normal respiratory effort, clear to auscultation - Abdomen Abdomen: Present: soft, non tender, bowel sounds - Integumentary Present: other (MUltiple pressure ulcers Stages 2 and 3 of both LE. All are stable, dry and without any clinical signs of infection. He has a CLEAN sacral wound with well approximated flap and perwiound edges. Dionte in situ. NO signs of infection. ) - Neurologic Present: other (Bedconfined Quadriplegia / paresis.) - Musculoskeletal Present: other (Bed confined, multiple deformities of all extremities and psudoarthrosis Left lwoer leg. ) - Psychiatric Present: oriented to time, oriented to person, oriented to place, speech is normal, memory intact Results - Labs 11/09/19 06:54 11/09/19 06:54 Abnormal lab results 11/07/19 11/07/19 11/08/19 Range/Units 17:10 17:10 07:45 WBC 12.3 H (4.50-11.00) K/mcL RBC 4.36 L 3.87 L (4.63-6.08) M/mcL Hgb 11.0 L 9.7 L (13.7-17.5) g/dL Hct 37.1 L 32.8 L (40.1-51.0) % MCH 25.2 L 25.1 L (26.0-34.0) pg MCHC 29.6 L 29.6 L (31.0-36.0) g/dL RDW 16.3 H 16.2 H (11.5-14.5) % Seg Neutrophils % 80 H (38-78) % Lymphocytes % 10 L (15-49) % Platelet Estimate Increased A (NORMAL) RBC Morphology Abnorm A Abnorm A (NORMAL) Polychromasia 1+ A (NONE SEEN) Hypochromasia 2+ A 1+ A (NONE SEEN) Anisocytosis 1+ A 1+ A (NONE SEEN) Creatinine 0.4 L (0.7-1.2) mg/dl Glucose 117 H (70-105) mg/dL Phosphorus 4.6 H (2.7-4.5) mg/dL Alkaline Phosphatase 160 H (39-117) U/L Total Protein (5.9-8.4) gm/dL Albumin 3.1 L (3.2-5.2) gm/dL Triglycerides 157 H (<150) mg/dl 11/08/19 Range/Units 07:45 WBC (4.50-11.00) K/mcL RBC (4.63-6.08) M/mcL Hgb (13.7-17.5) g/dL Hct (40.1-51.0) % MCH (26.0-34.0) pg MCHC (31.0-36.0) g/dL RDW (11.5-14.5) % Seg Neutrophils % (38-78) % Lymphocytes % (15-49) % Platelet Estimate (NORMAL) RBC Morphology (NORMAL) Polychromasia (NONE SEEN) Hypochromasia (NONE SEEN) Anisocytosis (NONE SEEN) Creatinine 0.5 L (0.7-1.2) mg/dl Glucose 224 H (70-105) mg/dL Phosphorus (2.7-4.5) mg/dL Alkaline Phosphatase 143 H (39-117) U/L Total Protein 5.8 L (5.9-8.4) gm/dL Albumin 3.0 L (3.2-5.2) gm/dL Triglycerides (<150) mg/dl Diabetes panel 11/07/19 11/08/19 11/08/19 Range/Units 17:10 07:45 07:45 Sodium 141 142 (133-145) mmol/L Potassium 4.2 3.9 (3.3-5.1) mmol/L Chloride 101 102 (96-108) mmol/L Carbon Dioxide 25 26 (22-30) mmol/L BUN 18 18 (8-23) mg/dl Creatinine 0.4 L 0.5 L (0.7-1.2) mg/dl Glucose 117 H 224 H (70-105) mg/dL Hemoglobin A1c 5.3 (4.0-6.0) % HGB Calcium 8.9 8.6 (8.6-10.4) mg/dl AST 11 10 (0-37) U/l ALT 7 7 (0-40) U/l Alkaline Phosphatase 160 H 143 H (39-117) U/L Total Protein 6.2 5.8 L (5.9-8.4) gm/dL Albumin 3.1 L 3.0 L (3.2-5.2) gm/dL Triglycerides 157 H 99 (<150) mg/dl Calcium panel 11/07/19 11/08/19 Range/Units 17:10 07:45 Calcium 8.9 8.6 (8.6-10.4) mg/dl Phosphorus 4.6 H 4.2 (2.7-4.5) mg/dL Albumin 3.1 L 3.0 L (3.2-5.2) gm/dL Pituitary panel 11/07/19 11/08/19 Range/Units 17:10 07:45 Sodium 141 142 (133-145) mmol/L Potassium 4.2 3.9 (3.3-5.1) mmol/L Chloride 101 102 (96-108) mmol/L Carbon Dioxide 25 26 (22-30) mmol/L BUN 18 18 (8-23) mg/dl Creatinine 0.4 L 0.5 L (0.7-1.2) mg/dl Glucose 117 H 224 H (70-105) mg/dL Calcium 8.9 8.6 (8.6-10.4) mg/dl Adrenal panel 11/07/19 11/08/19 Range/Units 17:10 07:45 Sodium 141 142 (133-145) mmol/L Potassium 4.2 3.9 (3.3-5.1) mmol/L Chloride 101 102 (96-108) mmol/L Carbon Dioxide 25 26 (22-30) mmol/L BUN 18 18 (8-23) mg/dl Creatinine 0.4 L 0.5 L (0.7-1.2) mg/dl Glucose 117 H 224 H (70-105) mg/dL Calcium 8.9 8.6 (8.6-10.4) mg/dl Total Bilirubin 0.2 < 0.2 (0.0-1.0) mg/dL AST 11 10 (0-37) U/l ALT 7 7 (0-40) U/l Alkaline Phosphatase 160 H 143 H (39-117) U/L Total Protein 6.2 5.8 L (5.9-8.4) gm/dL Albumin 3.1 L 3.0 L (3.2-5.2) gm/dL All other labs normal. Assessment and Plan (1) Wound of sacral region Assessment: Chronic wounds of all extremities . Ongoing wound care at [facility] at [facility] ID. Recent post surgical wound s/p Debridement of sacral pressure ulcer and complex closure with advancement flap Resolving post surgical changes. Will recommend an ONLAY wound VAC. Rest of supportive care to continue. RECOMMEND transfer back to [facility] in [facility]. Status: Acute Priority: Medium Qualifiers: Encounter type: initial encounter Qualified Code(s): S31.000A - Unspecified open wound of lower back and pelvis without penetration into retroperitoneum, initial encounter
[2019-11-08] MEDS: DOXYCYCLINE HYCLATE 100 MG TABLET.ORL PO SCH (23:12)
[2019-11-08] MEDS: MIRTAZAPINE 15 MG TABLET PO SCH (23:13)
[2019-11-08] MEDS: SENNOSIDES/DOCUSATE SODIUM 1 TAB TABLET PO SCH (23:14)
--- NOTE | 2019-11-09 01:08 | Consultation ---
DATE OF CONSULTATION: 11/08/2019 HISTORY OF PRESENT ILLNESS: On postop day #1, Mr. Bolton was seen in followup. His pain control was a problem last night, but he is doing better with the Dilaudid. He is currently afebrile. His temperature is 98.7. His vital signs are stable. He is on 3 liters of nasal O2. His surgical drain is putting out about 20 mL in the last shift. His head and neck examination is otherwise unremarkable. He has good color. Looking at his surgical site, there is some stool present. Once this is cleaned, his incision looks good, is well approximated. It appears sealed. His drain is functioning. The wounds were washed free of debris and bacitracin was applied. Cultures, no growth to date. IMPRESSION: Doing well postoperatively, felt very good about his surgical closure at this time around. 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 We will continue to wean his medications as possible. We will follow up on cultures and adjust his antibiotics as necessary. Once he is stable and his cultures have been clear, we can look for options for postoperative management. We will check him again tomorrow to make sure he continues to do well. BENJAMIN:in Job ID: [id number] Doc ID: [id number] Paxton Rodriguez MD
[2019-11-09] MEDS: BACLOFEN 10 MG TABLET PO PRN ×2 (03:39→19:48)
[2019-11-09] MEDS: oxyCODONE HCL 5 MG TABLET PO PRN ×3 (03:43→20:22)
[2019-11-09] MEDS: 0.9 % SODIUM CHLORIDE 10 ML SYRINGE IV SCH ×3 (05:50→20:24)
[2019-11-09] MEDS: HYDROmorphone 2 MG/ML VIAL IV PRN ×5 (06:41→22:46)
[2019-11-09 07:45] LABS: Hematocrit 30.8 % (40.1-51.0); Mean Cell Volume 85.6 fL (80.0-100.0); Mean Corpuscular HGB Conc 29.2 g/dL (31.0-36.0); Mean Platelet Volume 9.3 fL (7.4-10.4); Platelet Count 379 K/mcL (140-440); Red Cell Distribution Width 16.5 % (11.5-14.5); WBC 8.3 K/mcL (4.50-11.00)
[2019-11-09 08:23] LABS: ALT/SGPT 6 U/l (0-40); AST/SGOT 8 U/l (0-37); Albumin 3.2 gm/dL (3.2-5.2); Albumin/Globulin Ratio 1.5 (1.0-2.3); Alkaline Phosphatase 124 U/L (39-117); Bilirubin,Direct < 0.2 mg/dL (0.0-0.3); Bilirubin,Total < 0.2 mg/dL (0.0-1.0); Blood Urea Nitrogen 14 mg/dl (8-23); Calcium 8.2 mg/dl (8.6-10.4); Carbon Dioxide 26 mmol/L (22-30); Chloride 105 mmol/L (96-108); Globulin 2.1 gm/dL (2.2-3.7); Glomerular Filtration Rate 125; Glucose 92 mg/dL (70-105); Lactate Dehydrogenase 137 U/L (94-250); Phosphorous 4.1 mg/dL (2.7-4.5); Triglycerides 90 mg/dl (<150); Uric Acid 5.3 mg/dL (2.5-8.0)
[2019-11-09 08:25] LABS: Anisocytosis 1+ (NONE SEEN); Eosinophils % (Manual) 2 % (0-7); Hypochromasia 1+ (NONE SEEN); Lymphocytes % 21 % (15-49); Monocytes % (Manual) 5 % (1-12); Platelet Estimate NORMAL (NORMAL); RBC Morphology ABNORM (NORMAL); Segmented Neutrophils % 72 % (38-78)
[2019-11-09] MEDS: CYANOCOBALAMIN (VITAMIN B-12) 500 MCG TABLET PO SCH ×2 (08:51→20:23)
[2019-11-09] MEDS: DOCUSATE SODIUM 100 MG CAPSULE PO SCH ×2 (08:52→20:24)
[2019-11-09] MEDS: MULTIVIT,THER IRON,CA,FA & MIN 1 TABLET PO SCH (08:52)
[2019-11-09] MEDS: ASCORBIC ACID 500 MG TABLET PO SCH ×2 (08:52→20:23)
[2019-11-09] MEDS: THIAMINE 100 MG TABLET PO SCH (08:52)
[2019-11-09] MEDS: DOXYCYCLINE HYCLATE 100 MG TABLET.ORL PO SCH ×2 (08:52→20:29)
[2019-11-09] MEDS: ZINC SULFATE 50 MG CAPSULE PO SCH (08:52)
[2019-11-09] MEDS: FOLIC ACID 1 MG TABLET PO SCH (08:52)
[2019-11-09] MEDS: sitaGLIPtin 100 MG TABLET PO SCH (08:52)
[2019-11-09] MEDS: APIXABAN 2.5 MG TABLET PO SCH ×2 (08:53→20:23)
[2019-11-09] MEDS: BACITRACIN TOPICAL OINT 15 GM TUBE TOPICAL SCH ×3 (08:53→20:38)
[2019-11-09] MEDS: 0.9 % SODIUM CHLORIDE 1,000 ML IV SCH ×2 (08:57→17:30)
--- NOTE | 2019-11-09 11:21 | Internal Med Progress Note ---
Medical - PN: Subj Patient information: Note initiated : 11/09/19 at 11:18 am Service Date, if different from initiated Date: [] Patient: Darien Bolton 64 y/o M admitted on 11/07/19 for Debridement, Readvance Sacral Wound. Chief Complaint: [] Interval history: Mr. Bolton is a 64 year old M with a history of quadriplegia who developed decubitus ulceration a few months ago with gradually worsening to stage IV. Patient has been managed by wound care and was referred for surgical intervention. He underwent wound debridement with advanced flap closure by Dr. Gerardo Mejia today. Postoperatively hospitalist service was consulted. During my evaluation patient is immediately postoperative. He is sedated under the effect of anesthesia. Blood pressures around 80s. He however responds to commands opens eyes. He complains of postoperative pain. Patient was able to endorse history as above. He denies recent fever chills. 11/08-patient doing well. Tolerating diet. No overnight fever chills nausea vomiting. Ongoing wound care. Discharge planning per surgery. Continue nutrition supplements to promote wound healing. 11/09-ongoing postoperative care/wound management per Dr. Jaramillo. On doxy cycline. Cultures pending so far. White count 8.3, blood sugars at goal. No overnight fever chills. Ongoing PT OT - Constitutional Vitals: Vital Signs Temp Pulse Resp BP Pulse Ox 98.2 F 71 22 126/80 96 11/09/19 07:50 11/09/19 07:50 11/09/19 07:50 11/09/19 07:50 11/09/19 07:50 Period Temp Pulse Resp BP Sys/Isidro Pulse Ox Last 24 Hr 97.9 F-98.7 F 62-71 18-26 85-126/61-80 95-98 Intake and Output 11/08/19 11/09/19 11/09/19 21:59 05:59 13:59 Intake Total 530 250 240 Output Total 260 607 Balance 270 -357 240 Weight 116 lb Intake & Output: Intake & Output 11/08/19 11/09/19 11/09/19 21:59 05:59 13:59 Intake Total 530 250 240 Output Total 260 607 Balance 270 -357 240 Weight 116 lb Intake: IV 0 Sodium Chloride 0.9% 1,000 ml @ 0 50 mls/hr IV .Q20H [facility] Rx#: [id number] Oral 530 250 240 Output: Drainage 10 7 Right Hip 10 7 Urine Catheter Amount 250 600 Other: Meal Dinner Breakfast Percent of Meal Consumed 50% 50% Feeding Ability Assist with Tray Set Up Needs Supervision Urine Appearance Cloudy Clear Sediment De Souza Cloudy Cloudy Sediment Urine Color Dark Yellow Bright Yellow De Souza Bright Yellow Urine Odor Normal Stool Size Smear Stool Color Brown Stool Consistency Soft # of times incontinent of 4 Bowels General appearance: no acute distress - Head Additional comments: Alert oriented Nonlabored breathing No significant changes since previous day Resting comfortably Medical - PN: Obj Da - Labs CBC & Chem 7: 11/09/19 06:54 11/09/19 06:54 Labs: Abnormal Lab Results 11/09/19 11/09/19 11/08/19 06:54 06:54 07:45 WBC RBC 3.60 L Hgb 9.0 L Hct 30.8 L POC Hct MCH 25.0 L MCHC 29.2 L RDW 16.5 H Seg Neutrophils % Lymphocytes % Platelet Estimate RBC Morphology Abnorm A Polychromasia Hypochromasia 1+ A Anisocytosis 1+ A POC Total CO2 Creatinine 0.4 L 0.5 L POC Creatinine Glucose 224 H Calcium 8.2 L POC WB Ioniz Calcium Phosphorus Alkaline Phosphatase 124 H 143 H Total Protein 5.3 L 5.8 L Albumin 3.0 L Globulin 2.1 L Triglycerides 11/08/19 11/07/19 11/07/19 07:45 17:10 17:10 WBC 12.3 H RBC 3.87 L 4.36 L Hgb 9.7 L 11.0 L Hct 32.8 L 37.1 L POC Hct MCH 25.1 L 25.2 L MCHC 29.6 L 29.6 L RDW 16.2 H 16.3 H Seg Neutrophils % 80 H Lymphocytes % 10 L Platelet Estimate Increased A RBC Morphology Abnorm A Abnorm A Polychromasia 1+ A Hypochromasia 1+ A 2+ A Anisocytosis 1+ A 1+ A POC Total CO2 Creatinine 0.4 L POC Creatinine Glucose 117 H Calcium POC WB Ioniz Calcium Phosphorus 4.6 H Alkaline Phosphatase 160 H Total Protein Albumin 3.1 L Globulin Triglycerides 157 H 11/07/19 10:33 WBC RBC Hgb Hct POC Hct 36.0 L MCH MCHC RDW Seg Neutrophils % Lymphocytes % Platelet Estimate RBC Morphology Polychromasia Hypochromasia Anisocytosis POC Total CO2 31 H Creatinine POC Creatinine 0.4 L Glucose Calcium POC WB Ioniz Calcium 1.15 L Phosphorus Alkaline Phosphatase Total Protein Albumin Globulin Triglycerides Meds: Medications Acetaminophen (Tylenol) 650 mg PO Q4-6HP PRN; Protocol PRN Reason: Per Pain Protocol/Fever > 101 Apixaban (Eliquis) 2.5 mg PO BID [facility] Last Admin: 11/09/19 08:53 Dose: 2.5 mg Documented by: Ascorbic Acid (Vitamin C) 500 mg PO BID [facility] Last Admin: 11/09/19 08:52 Dose: 500 mg Documented by: Bacitracin (Bacitracin Topical Oint) 1 dose TOPICAL BID [facility] Last Admin: 11/09/19 08:54 Dose: 1 dose Documented by: Baclofen (Lioresal) 10 mg PO QIDP PRN PRN Reason: Muscle Spasm Last Admin: 11/09/19 03:39 Dose: 10 mg Documented by: Bisacodyl (Dulcolax) 10 mg MN DAILYP PRN PRN Reason: Constipation Cyanocobalamin (Vitamin B-12) 1,000 mcg PO BID [facility] Stop: 11/12/19 09:01 Last Admin: 11/09/19 08:51 Dose: 1,000 mcg Documented by: Docusate Sodium (Colace) 100 mg PO BID [facility] Last Admin: 11/09/19 08:52 Dose: 100 mg Documented by: Doxycycline Hyclate (Doxycycline Hyclate) 100 mg PO BID [facility] Last Admin: 11/09/19 08:52 Dose: 100 mg Documented by: Folic Acid (Folic Acid) 1 mg PO DAILY [facility] Last Admin: 11/09/19 08:52 Dose: 1 mg Documented by: Hydromorphone HCl (Dilaudid) 0.5 mg IV Q1HP PRN; Protocol PRN Reason: Per Pain Protocol Last Admin: 11/09/19 06:41 Dose: 0.5 mg Documented by: Magnesium Sulfate (Magnesium Sulfate) 2 gm in 50 mls @ 50 mls/hr IV UD PRN PRN Reason: MG = or < 1.7 Sodium Chloride (Sodium Chloride 0.9%) 1,000 mls @ 50 mls/hr IV .Q20H [facility] Stop: 11/10/19 04:29 Last Admin: 11/09/19 08:57 Dose: Not Given Documented by: Acetaminophen (Ofirmev) 650 mg in 65 mls @ 130 mls/hr IV Q6HP PRN; Protocol PRN Reason: Per Pain Protocol/Fever > 101 Last Infusion: 11/07/19 20:38 Dose: Infused Documented by: Iron Carb/Multivit/[place]/Folic Acid (Multivitamin W/Minerals) 1 tab PO DAILY [facility] Last Admin: 11/09/19 08:52 Dose: 1 tab Documented by: Magnesium Hydroxide (Milk Of Magnesia) 30 ml PO PRN PRN PRN Reason: Constipation Melatonin (Melatonin 3mg Tablet) 3 mg PO HSP PRN PRN Reason: Insomnia Last Admin: 11/07/19 20:06 Dose: 3 mg Documented by: Mirtazapine (Remeron) 7.5 mg PO [facility] Last Admin: 11/08/19 23:13 Dose: 7.5 mg Documented by: Nystatin (Nystatin) 1 dose TOPICAL QIDP PRN PRN Reason: Rash Ondansetron HCl (Zofran Odt) 4 mg SL Q4-6HP PRN; Protocol PRN Reason: Nausea And Vomiting Last Admin: 11/07/19 20:07 Dose: 4 mg Documented by: Ondansetron HCl (Zofran) 4 mg IV Q4-6HP PRN; Protocol PRN Reason: Nausea And Vomiting Oxycodone HCl (Roxicodone) 10 mg PO Q4HP PRN PRN Reason: Pain Last Admin: 11/09/19 08:51 Dose: 10 mg Documented by: Polyethylene Glycol (Miralax) 17 gm PO DAILYP PRN PRN Reason: Constipation Potassium Chloride (Klor-Con) 40 meq PO DAILYP PRN PRN Reason: K+ < 3.5 Psyllium Hydrophilic Mucilloid (Metamucil) 6 gm PO HSP PRN PRN Reason: Constipation Senna/Docusate Sodium (Senna Plus Tablet) 1 tab PO [facility] Last Admin: 11/08/19 23:14 Dose: Not Given Documented by: Sitagliptin Phosphate (Januvia) 100 mg PO DAILY [facility] Last Admin: 11/09/19 08:52 Dose: 100 mg Documented by: Sodium Chloride (Saline Flush) 10 ml IV Q8 [facility] Last Admin: 11/09/19 05:50 Dose: Not Given Documented by: Thiamine HCl (Vitamin B1) 100 mg PO DAILY [facility] Last Admin: 11/09/19 08:52 Dose: 100 mg Documented by: Zinc Sulfate (Zinc) 50 mg PO DAILY [facility] Last Admin: 11/09/19 08:52 Dose: 50 mg Documented by: Medical - PN: A/P - Time Spent With Patient Total time spent is greater than 50% in coordination of care (as documented) at patient's floor/unit and/or counseling patient: 25 - 35 minutes (1) Wound of sacral region Status: Acute Assessment and plan: * Sacral wound stage IV status post debridement and advancement flap closure by surgery. Postoperative management as per surgery * Decubitus wound infection/cellulitis continue doxycycline. Await culture sensitivity results * History of T6 quadriplegia-continue PT OT/offloading, continue baclofen/oxycodone for pain management * Anticoagulation on apixaban (indication ischemic cardiomyopathy) * Elevated blood sugars, likely stress response. A1c 5.3. Now at goal * Full code * Prophylaxis on anticoagulation Plan * Continue postoperative care as per surgery * Wound care per wound physician * Continue doxycycline * Prior medical condition management as above * Discharge planning to SNF likely Thursday or Thursday Current Visit: Yes
[2019-11-09] MEDS: MIRTAZAPINE 15 MG TABLET PO SCH (20:22)
[2019-11-09] MEDS: SENNOSIDES/DOCUSATE SODIUM 1 TAB TABLET PO SCH (20:24)
[2019-11-09] MEDS: ACETAMINOPHEN 650 MG/65 ML BOTTLE IV PRN (21:43)
[2019-11-10] MEDS: HYDROmorphone 2 MG/ML VIAL IV PRN ×4 (01:18→16:57)
[2019-11-10] MEDS: BACLOFEN 10 MG TABLET PO PRN ×3 (03:24→20:45)
[2019-11-10] MEDS: oxyCODONE HCL 5 MG TABLET PO PRN ×4 (03:24→20:44)
--- NOTE | 2019-11-10 04:17 | Consultation ---
DATE OF CONSULTATION: 11/09/2019 FOLLOWUP NOTE DATE OF NOTE: 11/09/2019 HISTORY OF PRESENT ILLNESS: Mr. Bolton is postop day #2 from his debridement and closure of wound from dehiscence. He had undergone his sacral flap closure about 4 weeks ago, but due to chronic stooling and difficulty in keeping his wound clean, 1 edge of the wound dehisced. His pain control is better. He is still requiring parenteral Dilaudid every 3 to 4 hours. He is still on oxygen but he is on 3 liters. PHYSICAL EXAMINATION: VITAL SIGNS: He is currently afebrile. His vital signs are stable. His temperature is 98.3. He is on 3 liters of oxygen with a saturation of about 95%. His STACIA output is down to about 10 mL over the last 12 hours. HEAD AND NECK: Unchanged. SKIN: His surgical site, his wounds for the most part look clean. There is evidence that there have been recently wiped free of stool and some maceration along the right incision. There is no separation, but I am concerned that with continued stooling and continued maceration would be a problem. LABORATORY DATA: His labs demonstrate stable labs. He has got a good hemoglobin and hematocrit. Cultures, no growth is present. IMPRESSION: Stable male status post repair of a somewhat complicated wound. Because of his high level of incomplete quadriplegia, position sense is a problem for him. He is still having quite a bit of pain, most likely due to the incomplete nature of his quadriplegia and from the debridement of the sacral bone itself. Cultures are still pending. We will have to shift his antibiotic needs depending on what we find at the time of maturation of the cultures, this may be 3 to 4 days and it may be problematic if he goes home or to a nursing facility and we will have to certainly change the antibiotics which may result in 2 to 3-day lapse of appropriate management. We will thus so continue to wait for his cultures. I am very concerned about his wound because it had already dehisced one time before. I will contact Yudith from wound care and see if we can just get a wound V.A.C. to protect it, it will help protect the wound and the suction device will help the wound to heal and contract and improve the likelihood of success of this complicated wound. Patient was given a chance to ask questions. He agrees with the plan and understands. I will go ahead and place the wound V.A.C. and we will check him tomorrow, continue on with his lab work and local care. We also will work on body positioning and have physical therapy work on him to get some upper extremity strengthening to at least try and loosen up some of his contractures and see if we can get him to move around a little bit better. BENJAMIN:lavern Job ID: [id number] Doc ID: [id number] Paxton Mejia MD
[2019-11-10] MEDS: 0.9 % SODIUM CHLORIDE 10 ML SYRINGE IV SCH ×3 (04:30→20:46)
[2019-11-10] MEDS: ZINC SULFATE 50 MG CAPSULE PO SCH (09:04)
[2019-11-10] MEDS: DOCUSATE SODIUM 100 MG CAPSULE PO SCH ×2 (09:04→20:37)
[2019-11-10] MEDS: DOXYCYCLINE HYCLATE 100 MG TABLET.ORL PO SCH ×2 (09:04→20:45)
[2019-11-10] MEDS: FOLIC ACID 1 MG TABLET PO SCH (09:04)
[2019-11-10] MEDS: MULTIVIT,THER IRON,CA,FA & MIN 1 TABLET PO SCH (09:04)
[2019-11-10] MEDS: CYANOCOBALAMIN (VITAMIN B-12) 500 MCG TABLET PO SCH ×2 (09:04→20:45)
[2019-11-10] MEDS: THIAMINE 100 MG TABLET PO SCH (09:04)
[2019-11-10] MEDS: ASCORBIC ACID 500 MG TABLET PO SCH ×2 (09:04→20:45)
[2019-11-10] MEDS: APIXABAN 2.5 MG TABLET PO SCH ×2 (09:04→20:45)
[2019-11-10 10:06] LABS: Hematocrit 31.3 % (40.1-51.0); Hemoglobin 9.1 g/dL (13.7-17.5); Mean Cell Volume 86.5 fL (80.0-100.0); Mean Corpuscular HGB Conc 29.1 g/dL (31.0-36.0); Mean Platelet Volume 9.1 fL (7.4-10.4); Platelet Count 352 K/mcL (140-440); RBC 3.62 M/mcL (4.63-6.08); Red Cell Distribution Width 16.4 % (11.5-14.5); WBC 7.6 K/mcL (4.50-11.00)
[2019-11-10 10:30] LABS: ALT/SGPT 7 U/l (0-40); AST/SGOT 10 U/l (0-37); Albumin/Globulin Ratio 1.3 (1.0-2.3); Alkaline Phosphatase 134 U/L (39-117); Bilirubin,Direct < 0.2 mg/dL (0.0-0.3); Bilirubin,Total < 0.2 mg/dL (0.0-1.0); Blood Urea Nitrogen 15 mg/dl (8-23); Calcium 8.4 mg/dl (8.6-10.4); Carbon Dioxide 27 mmol/L (22-30); Chloride 104 mmol/L (96-108); Globulin 2.4 gm/dL (2.2-3.7); Glomerular Filtration Rate 125; Glucose 87 mg/dL (70-105); Lactate Dehydrogenase 151 U/L (94-250); Phosphorous 4.2 mg/dL (2.7-4.5); Triglycerides 140 mg/dl (<150); Uric Acid 5.4 mg/dL (2.5-8.0)
[2019-11-10] MEDS: BACITRACIN TOPICAL OINT 15 GM TUBE TOPICAL SCH ×2 (11:01→20:37)
[2019-11-10 11:10] LABS: Anisocytosis 1+ (NONE SEEN); Band Neutrophils % 1 % (0-10); Basophils % (Manual) 2 % (0-2); Eosinophils % (Manual) 6 % (0-7); Hypochromasia 1+ (NONE SEEN); Lymphocytes % 18 % (15-49); Monocytes % (Manual) 9 % (1-12); Platelet Estimate NORMAL (NORMAL); Polychromasia FEW (NONE SEEN); RBC Morphology ABNORM (NORMAL); Segmented Neutrophils % 64 % (38-78)
[2019-11-10] MEDS: SENNOSIDES/DOCUSATE SODIUM 1 TAB TABLET PO SCH (20:37)
[2019-11-10] MEDS: MIRTAZAPINE 15 MG TABLET PO SCH (20:45)
[2019-11-10] MEDS: MELATONIN 3 MG TABLET PO PRN (20:45)
[2019-11-11] MEDS: oxyCODONE HCL 5 MG TABLET PO PRN ×3 (00:53→10:06)
[2019-11-11] MEDS: HYDROmorphone 2 MG/ML VIAL IV PRN ×4 (01:54→10:06)
[2019-11-11] MEDS: BACLOFEN 10 MG TABLET PO PRN ×2 (03:43→10:06)
[2019-11-11] MEDS: 0.9 % SODIUM CHLORIDE 10 ML SYRINGE IV SCH (07:22)
[2019-11-11 07:23] LABS: Hematocrit 42.6 % (40.1-51.0); Hemoglobin 12.4 g/dL (13.7-17.5); Mean Cell Volume 85.4 fL (80.0-100.0); Mean Corpuscular HGB Conc 29.1 g/dL (31.0-36.0); Mean Platelet Volume 10.1 fL (7.4-10.4); Platelet Count 590 K/mcL (140-440); RBC 4.99 M/mcL (4.63-6.08); Red Cell Distribution Width 16.6 % (11.5-14.5); WBC 25.6 K/mcL (4.50-11.00)
--- NOTE | 2019-11-11 07:55 | Consultation ---
DATE OF CONSULTATION: 11/10/2019 HISTORY: The patient is now postop day #3 from debridement and reclosure of a sacral wound. He is still requiring parenteral pain medication. He received Dilaudid about six times in the last 24 hours. He continues to have stooling, which makes it difficult to keep the wound clean, but his wound V.A.C. is in place and functioning well. His oxygenation requirements are down to 2 liters per nasal cannula. PHYSICAL EXAMINATION: GENERAL: He is awake, alert, and appropriate. VITAL SIGNS: Stable. His temperature is 98.4. STACIA output is down to less than 10 mL in the last 24 hours or so. HEAD AND NECK: Unchanged. SACRUM: His surgical site demonstrates a large amount soft stool around the surgical site, but the wound V.A.C. has been expertly placed and has kept the wound clean. His drain sites are unremarkable. LABORATORY DATA: He has no new labs for hemoglobin and hematocrit, but his cultures demonstrate no growth to date at present. We still have a couple of days for the anaerobic cultures to grow out, if they will. IMPRESSION: Stable male status post repair of a complicated wound, complicated largely because of his difficulty in getting a comfortable body position. He has incomplete quadriplegia, so he still has pain that is somewhat of a mosaic distribution. His sacrum was debrided and rasped down, and I suspect that this is the largest portion of his pain. He has fractures in both of his lower extremities. He does not have much feeling with that, but again it is incomplete and he demonstrates some discomfort with mobilization. I went ahead and cleaned up the stool around the lower border of the wound V.A.C. His problems include IV antibiotics until we get our cultures finalized, body positioning issues, weakness of his extremities and stiffness, and will continue to work with therapy on these. We need to optimize his nutrition, and lastly his wound care requires constant surveillance because of his frequent stooling, and the wound V.A.C. dressing has maintained itself and has obviated the need to have the staff check every couple of hours to make sure it is not soiled. I had a long discussion with the patient regarding placement and timing and healing, and at the present time we will plan to have him go back to [facility]. There is just no way that he can take care of himself at home even with Home Health. There are too many interventional modalities that are keeping him alive at present. He reluctantly agreed and once he is stable enough we will plan to send him back to [facility], and once his wounds have healed adequately he can certainly go home and recover there. I will plan to see him back tomorrow unless he is sent back to [facility] at that time. BENJAMIN:luis f Job ID: [id number] Doc ID: [id number] Paxton Mejia MD
[2019-11-11 08:00] LABS: ALT/SGPT 9 U/l (0-40); AST/SGOT 12 U/l (0-37); Albumin 3.6 gm/dL (3.2-5.2); Alkaline Phosphatase 176 U/L (39-117); Bilirubin,Direct < 0.2 mg/dL (0.0-0.3); Bilirubin,Total < 0.2 mg/dL (0.0-1.0); Blood Urea Nitrogen 16 mg/dl (8-23); Carbon Dioxide 24 mmol/L (22-30); Chloride 99 mmol/L (96-108); Glucose 238 mg/dL (70-105); Lactate Dehydrogenase 251 U/L (94-250); Triglycerides 136 mg/dl (<150); Uric Acid 6.1 mg/dL (2.5-8.0)
[2019-11-11 08:03] LABS: Albumin/Globulin Ratio 1.2 (1.0-2.3); Globulin 3.1 gm/dL (2.2-3.7); Glomerular Filtration Rate 106
[2019-11-11 09:24] LABS: Anisocytosis 1+ (NONE SEEN); Eosinophils % (Manual) 1 % (0-7); Lymphocytes % 8 % (15-49); Monocytes % (Manual) 8 % (1-12); Platelet Estimate INCREASED (NORMAL); RBC Morphology ABNORM (NORMAL); Segmented Neutrophils % 83 % (38-78)
[2019-11-11] MEDS: ZINC SULFATE 50 MG CAPSULE PO SCH (10:05)
[2019-11-11] MEDS: DOCUSATE SODIUM 100 MG CAPSULE PO SCH (10:05)
[2019-11-11] MEDS: MULTIVIT,THER IRON,CA,FA & MIN 1 TABLET PO SCH (10:05)
[2019-11-11] MEDS: CYANOCOBALAMIN (VITAMIN B-12) 500 MCG TABLET PO SCH (10:05)
[2019-11-11] MEDS: THIAMINE 100 MG TABLET PO SCH (10:06)
[2019-11-11] MEDS: FOLIC ACID 1 MG TABLET PO SCH (10:06)
[2019-11-11] MEDS: ASCORBIC ACID 500 MG TABLET PO SCH (10:06)
[2019-11-11] MEDS: APIXABAN 2.5 MG TABLET PO SCH (10:06)
[2019-11-11] MEDS: DOXYCYCLINE HYCLATE 100 MG TABLET.ORL PO SCH (10:06)
[2019-11-11] MEDS: BACITRACIN TOPICAL OINT 15 GM TUBE TOPICAL SCH (10:07)
--- NOTE | 2019-11-11 11:10 | Internal Med Progress Note ---
Medical - PN: Subj Patient information: Note initiated : 11/10/19 at 11:08 am Service Date, if different from initiated Date: [] Patient: Darien Bolton 64 y/o M admitted on 11/07/19 for Debridement, Readvance Sacral Wound. Chief Complaint: [] Interval history: Mr. Bolton is a 64 year old M with a history of quadriplegia who developed decubitus ulceration a few months ago with gradually worsening to stage IV. Patient has been managed by wound care and was referred for surgical intervention. He underwent wound debridement with advanced flap closure by Dr. Gerardo Mejia today. Postoperatively hospitalist service was consulted. During my evaluation patient is immediately postoperative. He is sedated under the effect of anesthesia. Blood pressures around 80s. He however responds to commands opens eyes. He complains of postoperative pain. Patient was able to endorse history as above. He denies recent fever chills. 11/08-patient doing well. Tolerating diet. No overnight fever chills nausea vomiting. Ongoing wound care. Discharge planning per surgery. Continue nutrition supplements to promote wound healing. 11/09-ongoing postoperative care/wound management per Dr. Jaramillo. On doxy cycline. Cultures pending so far. White count 8.3, blood sugars at goal. No overnight fever chills. Ongoing PT OT 11/10- Pt doing well, ON wound care per surgery. Continue doxycycline, PT/OT/ Nutrition support. Anticipate Dc SNGF in 24 hours with OP F/u surgery. - Constitutional Vitals: Vital Signs Temp Pulse Resp BP Pulse Ox 98.7 F 18 L 16 129/83 93 11/11/19 08:00 11/11/19 08:00 11/11/19 08:00 11/11/19 08:00 11/11/19 08:00 Period Temp Pulse Resp BP Sys/Isidro Pulse Ox Last 24 Hr 97.1 F-98.7 F 18-130 16-18 82-155/54-94 91-96 Intake and Output 11/10/19 11/11/19 11/11/19 21:59 05:59 13:59 Intake Total 400 Output Total 1406 428 Balance -1406 -28 Weight 122 lb 9.6 oz Intake & Output: Intake & Output 11/10/19 11/11/19 11/11/19 21:59 05:59 13:59 Intake Total 400 Output Total 1406 428 Balance -1406 -28 Weight 122 lb 9.6 oz Intake: Oral 400 Output: Drainage 3 Right Hip 3 Drainage 6 Right Hip 6 Urine Catheter Amount 1400 425 Other: Meal Dinner Percent of Meal Consumed 15% Feeding Ability Assist with Tray Set Up Urine Appearance Clear Clear De Souza Clear Urine Color Bright Yellow Bright Yellow De Souza Bright Yellow Medical - PN: Obj Da - Labs CBC & Chem 7: 11/11/19 05:35 11/11/19 05:35 Labs: Abnormal Lab Results 11/11/19 11/11/19 11/10/19 05:35 05:35 06:30 WBC 25.6 H RBC Hgb 12.4 L Hct MCH 24.8 L MCHC 29.1 L RDW 16.6 H Plt Count 590 H Seg Neutrophils % 83 H Lymphocytes % 8 L Platelet Estimate Increased A RBC Morphology Abnorm A Polychromasia Hypochromasia Anisocytosis 1+ A Anion Gap 18.0 H Creatinine 0.6 L 0.4 L Glucose 238 H Calcium 8.4 L Phosphorus 5.0 H Alkaline Phosphatase 176 H 134 H Lactate Dehydrogenase 251 H Total Protein 5.4 L Albumin 3.0 L Globulin 11/10/19 11/09/19 11/09/19 06:30 06:54 06:54 WBC RBC 3.62 L 3.60 L Hgb 9.1 L 9.0 L Hct 31.3 L 30.8 L MCH 25.1 L 25.0 L MCHC 29.1 L 29.2 L RDW 16.4 H 16.5 H Plt Count Seg Neutrophils % Lymphocytes % Platelet Estimate RBC Morphology Abnorm A Abnorm A Polychromasia Few A Hypochromasia 1+ A 1+ A Anisocytosis 1+ A 1+ A Anion Gap Creatinine 0.4 L Glucose Calcium 8.2 L Phosphorus Alkaline Phosphatase 124 H Lactate Dehydrogenase Total Protein 5.3 L Albumin Globulin 2.1 L Meds: Medications Acetaminophen (Tylenol) 650 mg PO Q4-6HP PRN; Protocol PRN Reason: Per Pain Protocol/Fever > 101 Apixaban (Eliquis) 2.5 mg PO BID [facility] Last Admin: 11/11/19 10:06 Dose: 2.5 mg Documented by: Ascorbic Acid (Vitamin C) 500 mg PO BID [facility] Last Admin: 01/17/20 10:06 Dose: 500 mg Documented by: Bacitracin (Bacitracin Topical Oint) 1 dose TOPICAL BID [facility] Last Admin: 11/11/19 10:07 Dose: Not Given Documented by: Baclofen (Lioresal) 10 mg PO QIDP PRN PRN Reason: Muscle Spasm Last Admin: 11/11/19 10:06 Dose: 10 mg Documented by: Bisacodyl (Dulcolax) 10 mg MO DAILYP PRN PRN Reason: Constipation Cyanocobalamin (Vitamin B-12) 1,000 mcg PO BID [facility] Stop: 11/12/19 09:01 Last Admin: 11/11/19 10:05 Dose: 1,000 mcg Documented by: Docusate Sodium (Colace) 100 mg PO BID [facility] Last Admin: 11/11/19 10:05 Dose: 100 mg Documented by: Doxycycline Hyclate (Doxycycline Hyclate) 100 mg PO BID [facility] Last Admin: 11/11/19 10:06 Dose: 100 mg Documented by: Folic Acid (Folic Acid) 1 mg PO DAILY [facility] Last Admin: 11/11/19 10:06 Dose: 1 mg Documented by: Hydromorphone HCl (Dilaudid) 0.5 mg IV Q1HP PRN; Protocol PRN Reason: Per Pain Protocol Last Admin: 11/11/19 07:31 Dose: 0.5 mg Documented by: Magnesium Sulfate (Magnesium Sulfate) 2 gm in 50 mls @ 50 mls/hr IV UD PRN PRN Reason: MG = or < 1.7 Acetaminophen (Ofirmev) 650 mg in 65 mls @ 130 mls/hr IV Q6HP PRN; Protocol PRN Reason: Per Pain Protocol/Fever > 101 Last Admin: 11/09/19 21:43 Dose: 200 mls/hr Documented by: Iron Carb/Multivit/Magoffin/Folic Acid (Multivitamin W/Minerals) 1 tab PO DAILY [facility] Last Admin: 11/11/19 10:05 Dose: 1 tab Documented by: Magnesium Hydroxide (Milk Of Magnesia) 30 ml PO PRN PRN PRN Reason: Constipation Melatonin (Melatonin 3mg Tablet) 3 mg PO HSP PRN PRN Reason: Insomnia Last Admin: 11/10/19 20:45 Dose: 3 mg Documented by: Mirtazapine (Remeron) 7.5 mg PO HS [facility] Last Admin: 11/10/19 20:45 Dose: 7.5 mg Documented by: Nystatin (Nystatin) 1 dose TOPICAL QIDP PRN PRN Reason: Rash Ondansetron HCl (Zofran Odt) 4 mg SL Q4-6HP PRN; Protocol PRN Reason: Nausea And Vomiting Last Admin: 11/07/19 20:07 Dose: 4 mg Documented by: Ondansetron HCl (Zofran) 4 mg IV Q4-6HP PRN; Protocol PRN Reason: Nausea And Vomiting Oxycodone HCl (Roxicodone) 10 mg PO Q4HP PRN PRN Reason: Pain Last Admin: 11/11/19 10:06 Dose: 10 mg Documented by: Polyethylene Glycol (Miralax) 17 gm PO DAILYP PRN PRN Reason: Constipation Potassium Chloride (Klor-Con) 40 meq PO DAILYP PRN PRN Reason: K+ < 3.5 Psyllium Hydrophilic Mucilloid (Metamucil) 6 gm PO HSP PRN PRN Reason: Constipation Senna/Docusate Sodium (Senna Plus Tablet) 1 tab PO HS [facility] Last Admin: 11/10/19 20:37 Dose: Not Given Documented by: Sodium Chloride (Saline Flush) 10 ml IV Q8 [facility] Last Admin: 11/11/19 07:22 Dose: 10 ml Documented by: Thiamine HCl (Vitamin B1) 100 mg PO DAILY [facility] Last Admin: 11/11/19 10:06 Dose: 100 mg Documented by: Zinc Sulfate (Zinc) 50 mg PO DAILY [facility] Last Admin: 11/11/19 10:05 Dose: 50 mg Documented by: Medical - PN: A/P - Time Spent With Patient Total time spent is greater than 50% in coordination of care (as documented) at patient's floor/unit and/or counseling patient: 15 - 24 minutes (1) Wound of sacral region Status: Acute Assessment and plan: * Sacral wound stage IV status post debridement and advancement flap closure by surgery. Postoperative management as per surgery * Decubitus wound infection/cellulitis continue doxycycline. Cultures negative so far * History of T6 quadriplegia-continue PT OT/offloading, continue baclofen/oxycodone for pain management * Anticoagulation on apixaban (indication ischemic cardiomyopathy) * Full code * Prophylaxis on anticoagulation Plan * Continue postoperative care as per surgery * Continue doxycycline for 7 days * Prior medical condition management as above * Discharge planning to SNF likely Thursday Current Visit: Yes
--- NOTE | 2019-11-11 11:13 | Discharge Summary ---
Medical - DS: Prov Patient information: Note initiated : 11/11/19 at 11:10 am Service Date, if different from initiated Date: [] Patient: Darien Bolton 64 y/o M admitted on 11/07/19 for Debridement, Readvance Sacral Wound. Chief Complaint: [] Date of admission: 11/07/19 16:36 Discharge date: 11/11/19 Primary care physician: Stacia Helms Consults: 11/07/19 16:21 Consult to Physician [CONS] Routine Comment: Consulting Provider: Brian Rodriguez Reason For Exam: Physician to Consult 11/07/19 16:30 Consult to Physician [CONS] Routine Comment: Consulting Provider: Fracisco Jaramillo Reason For Exam: Physician to Consult Medical - DS: Meds - Discharge Medications Prescriptions: Doxycycline Hyclate 100 mg PO BID #14 tablet.orl Prescription Printed Active and Home Medications: Home Medications oxycodone 10 mg tablet 10 mg PO Q4H PRN tab 11/03/18 [History Confirmed 11/07/19 Last Taken 11/06/19] Apixaban [Eliquis] 2.5 mg PO BID 11/02/19 [History Confirmed 11/07/19 Last Taken 11/05/19] Argin/Glut/Cahmb/Collag/Mv-Min [Hernan Packet] 1 each PO DAILY 11/02/19 [History Confirmed 11/07/19 Last Taken 11/06/19] Ascorbic Acid [Vitamin C with Kaylee Hips] 500 mg PO BID 11/02/19 [History Confirmed 11/07/19 Last Taken 11/06/19] Baclofen [Lioresal] 15 mg PO QIDP PRN 11/02/19 [History Confirmed 11/07/19 Last Taken 11/07/19 07:11] Bisacodyl [Dulcolax] 10 mg [place] DAILYP PRN 11/02/19 [History Confirmed 11/07/19 Last Taken 11/06/19] Bisacodyl [Laxative] 10 mg PO DAILYP PRN 11/02/19 [History Confirmed 11/07/19 Last Taken 11/06/19] Calcium Carbonate [Calcium] 1,000 mg PO Q4HP PRN 11/02/19 [History Confirmed 11/07/19 Last Taken 11/06/19] Cholecalciferol (Vitamin D3) [Vitamin D3] 4,000 unit PO DAILY 11/02/19 [History Confirmed 11/07/19 Last Taken 11/06/19] Lactobacillus [Culturelle] 1 cap PO BID 11/02/19 [History Confirmed 11/07/19 Last Taken 11/06/19] Magnesium Hydroxide [Milk of Magnesia] 30 ml PO PRN PRN 11/02/19 [History Confirmed 11/07/19 Last Taken 11/06/19] Mirtazapine [Remeron] 7.5 mg PO HS 11/02/19 [History Confirmed 11/07/19 Last Taken 11/06/19] Multivitamin [Daily Multiple Vitamin] 1 each PO DAILY 11/02/19 [History Confirmed 11/07/19 Last Taken 11/06/19] Na Phos,M-B/Na Phos,Di-Ba [Fleets Adult] 1 dose UT DAILYP PRN 11/02/19 [History Confirmed 11/07/19 Last Taken 11/06/19] Nystatin 1 each MC QIDP PRN 11/02/19 [History Confirmed 11/07/19 Last Taken 11/06/19] Ondansetron [Zofran ODT] 4 mg PO Q6H PRN 11/02/19 [History Confirmed 11/07/19 Last Taken 11/06/19] Polyethylene Glycol 3350 [Miralax] 17 gm PO DAILYP PRN 11/02/19 [History Confirmed 11/07/19 Last Taken 11/06/19] Psyllium Husk [Psyllium Fiber] 0.52 gm PO HSP PRN 11/02/19 [History Confirmed 11/07/19 Last Taken 11/06/19] Sennosides [Senna] 8.6 mg PO BIDP PRN 11/02/19 [History Confirmed 11/07/19 Last Taken 11/06/19] Zinc Sulfate 220 mg PO DAILY 11/02/19 [History Confirmed 11/07/19 Last Taken 11/06/19] Doxycycline Hyclate 100 mg PO BID #14 tablet.orl 11/11/19 [Rx Last Taken Unknown] Medical - DS: Hosp Hospital Course: Discharge diagnosis * Sacral wound stage IV status post debridement and advancement flap closure by surgery. Underwent postoperative care as per surgery recommendation. Discharging to SNF for continued posthospitalization and postoperative care/rehab * Decubitus wound infection/cellulitis continue doxycycline additional 7 days. Cultures negative so far * History of T6 quadriplegia-continue PT OT/offloading, continue baclofen/oxycodone for pain management * Anticoagulation on apixaban (indication ischemic cardiomyopathy) Brief hospital course Mr. Bolton is a 64 year old M with a history of quadriplegia who developed decubitus ulceration a few months ago with gradually worsening to stage IV. Patient has been managed by wound care and was referred for surgical intervention. He underwent wound debridement with advanced flap closure by Dr. Gerardo Mejia today. Postoperatively hospitalist service was consulted. During my evaluation patient is immediately postoperative. He is sedated under the effect of anesthesia. Blood pressures around 80s. He however responds to commands opens eyes. He complains of postoperative pain. Patient was able to endorse history as above. He denies recent fever chills. 11/08-patient doing well. Tolerating diet. No overnight fever chills nausea vomiting. Ongoing wound care. Discharge planning per surgery. Continue nutrition supplements to promote wound healing. 11/09-ongoing postoperative care/wound management per Dr. Jaramillo. On doxycycline. Cultures pending so far. White count 8.3, blood sugars at goal. No overnight fever chills. Ongoing PT OT 11/10- Pt doing well, ON wound care per surgery. Continue doxycycline, PT/OT/ Nutrition support. Anticipate Dc SNGF in 24 hours with OP F/u surgery. 11/11-patient doing well. Discharging to SNF today. No overnight fever chills. Cultures negative so far. Continue additional 7 days oral doxycycline. Follow- up primary care physician/surgery as outpatient. Discharge diagnosis: . - Time Spent with Patient Total time spent providing and/or coordinating discharge services: Greater than 30 minutes Medical - DS: Exam - Constitutional Vitals: Vital Signs Temp Pulse Resp BP BP Pulse Ox 11/11/19 08:00 98.7 F 18 L 16 129/83 93 11/11/19 03:45 97.1 F 130 H 16 139/89 91 11/10/19 23:30 98.1 F 68 16 88/55 95 11/10/19 20:00 98.1 F 65 18 82/54 96 11/10/19 16:00 97.5 F 64 16 155/94 92 11/10/19 12:00 97.5 F 70 16 145/86 92 Intake and Output 11/10/19 11/11/19 11/11/19 21:59 05:59 13:59 Intake Total 400 Output Total 1406 428 Balance -1405 Intake: Oral 400 Output: Drainage 3 Right Hip 3 Drainage 6 Right Hip 6 Urine Catheter Amount 1400 425 Other: Meal Dinner Percent of Meal Consumed 15% Feeding Ability Assist with Tray Set Up Urine Appearance Clear Clear De Souza Clear Urine Color Bright Yellow Bright Yellow De Souza Bright Yellow Weight 122 lb 9.6 oz Medical - DS: Data Labs on day of discharge: Labs from last 24 hours 11/11/19 11/11/19 11/10/19 05:35 05:35 06:30 WBC 25.6 H RBC 4.99 Hgb 12.4 L Hct 42.6 MCV 85.4 MCH 24.8 L MCHC 29.1 L RDW 16.6 H Plt Count 590 H MPV 10.1 Total Counted 100 100 Seg Neutrophils % 83 H 64 Band Neutrophils % Not Reportable 1 Lymphocytes % 8 L 18 Monocytes % (Manual) 8 9 Eosinophils % (Manual) 1 6 Basophils % (Manual) 2 Platelet Estimate Increased A Normal RBC Morphology Abnorm A Abnorm A Polychromasia Few A Hypochromasia 1+ A Anisocytosis 1+ A 1+ A Sodium 141 Potassium 3.9 Chloride 99 Carbon Dioxide 24 Anion Gap 18.0 H BUN 16 Creatinine 0.6 L GFR Calculation 106 Glucose 238 H Uric Acid 6.1 Calcium 9.0 Phosphorus 5.0 H Magnesium 2.0 Total Bilirubin < 0.2 Direct Bilirubin < 0.2 GGT 39 AST 12 ALT 9 Alkaline Phosphatase 176 H Lactate Dehydrogenase 251 H Total Protein 6.7 Albumin 3.6 Globulin 3.1 Albumin/Globulin Ratio 1.2 Triglycerides 136 Preliminary micro results at discharge 11/07/19 17:25 Blood Culture - Preliminary Blood 11/07/19 17:10 Blood Culture - Preliminary Blood 11/08/19 11:00 Anaerobic Culture - Preliminary Buttock - Not Given 11/07/19 14:19 Urine Culture - Preliminary Urine - De Souza Pseudomonas aeruginosa Medical - DS: A/P - Patient/Caregiver Discharge Instructions Activity: as per physical therapy, increase activity as tolerated Diet: Regular Diet Additional Instructions: F/u wound care/ surgery in 1 week Follow-up PCP in 5 days I recommend SNF physician to check CBC BMP UA as a posthospital follow-up in 1 week. Antibiotics for 7 days doxycycline Continue aggressive bowel regimen to prevent constipation Continue fall precautions Continue aggressive PT OT evaluation and treatment at SNF. ST eval and treatment if indicated High protein calorie supplements All meals on chair sitting upright at 90 degrees to prevent aspiration Return to ER if worsening fever chills shortness of breath, diarrhea, bleeding Review risk and side effect profile of medications including antibiotics. Side effect may include mild to severe reaction including rash, diarrhea, cdiff and even which can be prevented by close follow-up with PCP and monitoring for side effects Continue diet and activity as advised Discussed importance of medication adherence Please review medication list with patient prior to discharge Please schedule follow-up with PCP/Providers prior to discharge and provide printouts Prescriptions: Doxycycline Hyclate 100 mg PO BID #14 tablet.orl Prescription Printed Other Amb Orders: Wound Care Instructions Location: None Selected - Problem Maintenance (1) Wound of sacral region Status: Acute Qualifiers: Encounter type: initial encounter Qualified Code(s): S31.000A - Unspecified open wound of lower back and pelvis without penetration into retroperitoneum, initial encounter - Follow [facility]osis: [facility] Rehab Potential: Fair I certify that the patient requires SNF services: Yes Overall status at discharge: patient is progressing back to baseline
[2019-11-11] MEDS ORDERED: HEPARIN SODIUM,PORCINE/PF 500 UNIT/5 ML SYRINGE IV ONE ×2 (12:25→12:53)
== END 2019-11-11 13:30 | DRG 573 ==
LOC: SUR 10:09 → MEDSUR 16:36
PROVIDERS: ADMIT Plastic Surgery; ATTEND Internal Medicine